=== PATIENT | female | born 1980 ===

== ENCOUNTER 2018-01-11 09:04 | Outpatient (CLI) | payer OTHER ==
--- NOTE | 2018-01-11 11:57 | CT ---
ABDOMEN AND PELVIS CT WITH CONTRAST: INDICATION: Left lower quadrant pain. FINDINGS: Mild volume loss is present at the lung bases. There is mild prominence in each renal collection sys tem. Liver, spleen, and pancreas are unremarkable. There is an oval hypodense mass with stippled ca lcification abutting the posterior aspect of the left adrenal gland. The mass measures approximately 4.2 cm in diameter with Hounsfield units greater than typical for a cyst. No discrete abnormality of right adrenal gland. No pathologic bowel dilatation, free air, or portal venous gas. Aorta is normal in caliber, where vi sualized. Marked heterogeneity and prominence of the uterus is seen. There is cystic density of the right adne xa. Moderate distention of the unopacified urinary bladder is present. There is no acute osseous pa thology. IMPRESSION: 1. There is prominent distention of the urinary bladder as well as distended bilateral renal collect ion system. This may relate to physiologic distention. Recommend correlation in this regard. 2. Heterogeneity of the uterus and prominent cysts at the right adnexa. Findings may relate to phys iologic changes of menstruation. Correlation with pelvic ultrasound would prove useful in light of p jadyn's history of lower abdominal pain. 3. Large hypodense mass of the left upper quadrant with associated calcification. This resides post erior and medial to the majority of the left adrenal gland and may arise from the posterior aspect of the left adrenal gland. Recommend follow-up with MRI of abdomen with & without contrast, utilizing adrenal mass protocol. Results and recommendatios for follow-up imaging telephoned to Dr. Blessing Nixon. POS: [facility]
[2018-01-11] MEDS ORDERED: Iopamidol 370 76% 100 ML VIAL ONE (13:22)
== END 2018-01-11 09:05 | disposition home or self-care (01) ==
LOC: BICCT 09:04 → CT 09:05
PROVIDERS: ATTEND Obstetrics & Gynecology
DX: R10.32 Left lower quadrant pain (principal); N85.8 Other specified noninflammatory disorders of uterus
CPT/HCPCS: 74177